=== PATIENT | male | born 1995 | race African-American/Black ===

== ENCOUNTER 2016-11-24 22:51 | Inpatient (IN) | payer MEDICAID, OTHER ==
[~2016-11-24] VITALS: Ht 170.2 cm; Wt 65.8 kg
[2016-11-24 22:54] VITALS: BP 110/69
--- NOTE | 2016-11-24 23:03 | NUR ---
TO ER BED 8
--- NOTE | 2016-11-24 23:05 | NUR ---
21/M C/O GRADUAL ONSET DIFFICULTY BREATHING AND CHEST PAIN X 1 HOUR AGO, NONRADIATING. PT ALSO REPORTS NAUSEA AND VOMITING WITH BLOODY EMESIS X2. PT REPORTS GRADUALLY WORSENING LOWER ABDOMINAL PAIN. PT REPORTS HE HAS BEEN SEEN AT [place] SEVERAL TIMES THIS MONTH. PMH: CHF RX: LASIX, LISINOPRIL, COREG
--- NOTE | 2016-11-24 23:07 | NUR ---
Patient being evaluated by DR. PINEDA at bedside.
[2016-11-24] MEDS ORDERED: PANTOPRAZOLE 40 MG INJ VIAL IVP ONE (23:20)
[2016-11-24 23:37] LABS: HEMATOCRIT 41.8 % (36-52); HEMOGLOBIN 13.5 g/dL (12.0-18.0); MEAN CORPUSCULAR HEMOGLOBIN 27 pg (27-31); MEAN CORPUSCULAR HGB CONC 32 g/dL (33-37); MEAN CORPUSCULAR VOLUME 82 fL (80-94); PLATELET COUNT (AUTO) 226 K/uL (140-450); RED BLOOD CELL COUNT(AUTO) 5.07 MIL/uL (4.20-6.10); RED CELL DISTRIBUTION WIDTH 13.1 % (11.6-13.7); WHITE BLOOD COUNT (AUTO) 7.6 K/uL (4.8-10.8)
[2016-11-24 23:48] LABS: ALBUMIN 3.3 g/dL (3.4-5.0); CREATININE 1.6 mg/dL (0.7-1.3); TOTAL BILIRUBIN 1.4 mg/dL (0.0-1.0)
[2016-11-24 23:57] LABS: LYMPHOCYTES % (MANUAL) 43 % (20-46); MONOCYTES % (MANUAL) 3 % (5-12)
[2016-11-25] VITALS (7 sets, daily range): BP systolic 86–105; BP diastolic 52–73
[2016-11-25] MEDS ORDERED: FUROSEMIDE 40 MG/4 ML VIAL IVP ONE (00:25)
[2016-11-25] MEDS ORDERED: MORPHINE SULFATE 2 MG/ML SYR IVP PRN (00:35)
[2016-11-25] MEDS ORDERED: ACETAMINOPHEN 325 MG TAB PO PRN (00:35)
[2016-11-25] MEDS ORDERED: LORazepam 2 MG/ML VIAL IVP PRN (00:35)
[2016-11-25] MEDS ORDERED: HYDROcodone/APAP 5/325 MG 1 TAB TAB PO PRN (00:35)
--- NOTE | 2016-11-25 00:35 | NUR ---
BP: 89/61, HR 100, SATS 99% ON RA. NO ACUTE DISTRESS NOTED AT THIS TIME. ER MD MADE AWARE OF PT'S STATUS. ORDER RECEIVED TO HOLD LASIX IVP.
[2016-11-25] MEDS ORDERED: CARV3.12 PO (01:11)
[2016-11-25] MEDS ORDERED: ASPI-1677 PO (01:11)
[2016-11-25] MEDS ORDERED: LISI2.5T12 PO (01:11)
[2016-11-25] MEDS ORDERED: FURO-570 PO (01:11)
[2016-11-25] MEDS ORDERED: DIGO0.121 PO (01:11)
--- NOTE | 2016-11-25 01:15 | NUR ---
Admitted from ER TO TELEMETRY UNIT , with chief complaint of SOB, VOMITING, BODY PAINS , 21 y/o ,Male, Cooperative, AWAKE, A/OX4, RESPIRATION EVEN AND UNLABORED, 02 SAT, 100% ON ROOM AIR. IV SALINE LOCK AT THE RIGHT AC G22, PATENT AND INTACT. HEAD TO TOE ASSESSMENT DONE WITH CHARGE NURSE JENNYFER, SKIN INTACT. DENIES PAIN 0/10 AT THIS TIME.oriented to call light, bed, phone,television, bathroom, smoking policy,visiting hours, procedures, ID bracelet on. Belongings list checked.
--- NOTE | 2016-11-25 01:20 | NUR ---
Patient will be admitted to care of DR BEAN. Admited to TELE. Will go to room 119A. Belongings list completed. Report to ADRY DICKINSON. VSS, PT STABLE, TRANSPORTED VIA GURNEY WITH CARE COORDINATION MANAGER. IV INTACT AND PATENT
--- NOTE | 2016-11-25 01:30 | NUR ---
REFUSED TO EAT SANDWICH WHEN OFFERED.
--- NOTE | 2016-11-25 02:00 | NUR ---
Patient's Plan of Care was discussed and reviewed with VECTOR CONTROL SPECIALIST: ADRY CARTAGENA
--- NOTE | 2016-11-25 02:30 | NUR ---
SLEEPING COMFORTABLY IN BED.
--- NOTE | 2016-11-25 07:15 | NUR ---
PATIENT RESTING IN BED, RT STATED PATIENT BECAME TACHYPNEIC, 02 AT 2 LITERS WAS PUT ON. STILL SLEEPING IN BED, NO RESPIRATORY DISTRESS. ENDORSED TO ALOK SAMS FOR CONTINUITY OF CARE. Addendum: 11/25/16 at 0742 by Gi Gaines LVN CORRECTION: ENDORSED PATIENT TO ALOK ROSARIO.
--- NOTE | 2016-11-25 07:16 | NUR ---
RECEIVED PT FROM ADRY SCHERER AT BEDSIDE. PT IS SLEEPING. PT HAS IV ON R AC 22 G SL INTACT. PT IS ON NC 2L, RR 36, NO DISTRESS NOTED. PT HAS NO COMPLAINTS AT THIS TIME. CALL LIGHT WITHIN REACH. WILL CONTINUE TO MONITOR.
[2016-11-25 07:50] LABS: HEMATOCRIT 39.7 % (36-52); HEMOGLOBIN 13.1 g/dL (12.0-18.0); MEAN CORPUSCULAR HEMOGLOBIN 27 pg (27-31); MEAN CORPUSCULAR HGB CONC 33 g/dL (33-37); MEAN CORPUSCULAR VOLUME 81 fL (80-94); PLATELET COUNT (AUTO) 219 K/uL (140-450); RED BLOOD CELL COUNT(AUTO) 4.88 MIL/uL (4.20-6.10); RED CELL DISTRIBUTION WIDTH 13.3 % (11.6-13.7); WHITE BLOOD COUNT (AUTO) 7.3 K/uL (4.8-10.8)
--- NOTE | 2016-11-25 07:52 | NUR ---
PATIENT HAS BEEN SCREENED AND CATEGORIZED MODERATE NUTRITION RISK. PATIENT WILL BE SEEN WITHIN 3-5 DAYS OF ADMISSION. 11/27/16-11/29/[address]
[2016-11-25 08:05] LABS: EOSINOPHILS % (MANUAL) 3 % (0-4); LYMPHOCYTES % (MANUAL) 33 % (20-46); MONOCYTES % (MANUAL) 9 % (5-12)
[2016-11-25 08:20] LABS: ANION GAP 12.1 (8-16); CARBON DIOXIDE 27.8 mmol/L (21-32); CREATININE 1.6 mg/dL (0.7-1.3); POTASSIUM 3.9 mmol/L (3.5-5.1)
--- NOTE | 2016-11-25 09:00 | NUR ---
PT IS RESTING COMFORTABLY IN BED. NO DISTRESS NOTED. CALL LIGHT WITHIN REACH. WILL CONTINUE TO MONITOR.
[2016-11-25] MEDS: FUROSEMIDE 40 MG/4 ML VIAL IVP SCH ×2 (09:13→21:00)
[2016-11-25 09:18] LABS: CREATINE KINASE MB 0.2 ng/mL (0-3.6)
[2016-11-25 09:37] LABS: MAGNESIUM 1.9 mg/dL (1.8-2.4); PHOSPHORUS 5.2 mg/dL (2.5-4.9)
[2016-11-25] MEDS: ONDANSETRON 4 MG/2 ML VIAL IVP PRN (10:50)
--- NOTE | 2016-11-25 11:50 | NUR ---
PT IS RESTING IN BED. NO ACUTE DISTRESS NOTED. CALL LIGHT WITHIN REACH. WILL CONTINUE TO MONITOR.
--- NOTE | 2016-11-25 13:30 | NUR ---
PT IS RESTING COMFORTABLY IN BED. NO DISTRESS NOTED. CALL LIGHT WITHIN REACH. WILL CONTINUE TO MONITOR.
--- NOTE | 2016-11-25 15:31 | NUR ---
PT IS LISTENING TO MUSIC IN BED. NO DISTRESS NOTED. CALL LIGHT WITHIN REACH. WILL CONTINUE TO MONITOR.
[2016-11-25 16:35] LABS: CREATINE KINASE MB 0.1 ng/mL (0-3.6)
--- NOTE | 2016-11-25 17:52 | NUR ---
PT IS RESTING IN BED PLAYING ON THE PHONE. PT IN STABLE CONDITION. CALL LIGHT WITHIN REACH. WILL CONTINUE TO MONITOR.
--- NOTE | 2016-11-25 19:20 | NUR ---
ENDORSED CARE OF PT TO CARY DICKINSON AT BEDSIDE. PT IN STABLE CONDITION.
--- NOTE | 2016-11-25 19:22 | NUR ---
PATIENT REPORT RECEIVED FROM MORNING NURSE. NO SIGNS AND SYMPTOMS OF DISTRESS NOTED. NO COMPLAINTS OF PAIN AT THIS TIME. IV SITE NOTED ON RIGHT AC, SALINE LOCKED. BED IN LOWEST POSITION, SIDE RAILS UP AND CALL LIGHT WITHIN REACH. WILL CONTINUE TO MONITOR.
[2016-11-25] MEDS: ATORVASTATIN 20 MG TAB PO SCH (20:40)
--- NOTE | 2016-11-25 22:00 | NUR ---
LASIX HELD DUE TO DECREASED BLOOD PRESSURE
--- NOTE | 2016-11-25 23:50 | NUR ---
CHECKED ON PATIENT. PATIENT IS ASLEEP. NO SIGNS AND SYMPTOMS OF DISTRESS NOTED. BED IN LOWEST POSITION, SIDE RAILS UP AND CALL LIGHT WITHIN REACH. WILL CONTINUE TO MONITOR.
[2016-11-26] VITALS (8 sets, daily range): BP systolic 87–104; BP diastolic 56–72
--- NOTE | 2016-11-26 03:45 | NUR ---
CHECKED ON PATIENT. PATIENT IS AWAKE, ALERT AND ORIENTED. PATIENT IS RELAXING IN BED WATCHING TV ON HIS PHONE. NO SIGNS AND SYMPTOMS OF DISTRESS NOTED. NO COMPLAINTS OF PAIN AT THIS TIME. BED IN LOWEST POSITION, SIDE RAILS UP AND CALL LIGHT WITHIN REACH. WILL CONTINUE TO MONITOR.
[2016-11-26 05:39] LABS: HEMATOCRIT 40.8 % (36-52); MEAN CORPUSCULAR HEMOGLOBIN 26 pg (27-31); MEAN CORPUSCULAR HGB CONC 32 g/dL (33-37); MEAN CORPUSCULAR VOLUME 82 fL (80-94); PLATELET COUNT (AUTO) 230 K/uL (140-450); RED BLOOD CELL COUNT(AUTO) 4.96 MIL/uL (4.20-6.10); RED CELL DISTRIBUTION WIDTH 12.8 % (11.6-13.7); WHITE BLOOD COUNT (AUTO) 6.7 K/uL (4.8-10.8)
[2016-11-26 06:30] LABS: ANION GAP 9.8 (8-16); CARBON DIOXIDE 29.8 mmol/L (21-32); CREATININE 1.6 mg/dL (0.7-1.3); POTASSIUM 3.6 mmol/L (3.5-5.1)
[2016-11-26 06:33] LABS: MAGNESIUM 1.9 mg/dL (1.8-2.4); PHOSPHORUS 4.7 mg/dL (2.5-4.9)
[2016-11-26 06:43] LABS: EOSINOPHILS % (MANUAL) 4 % (0-4); LYMPHOCYTES % (MANUAL) 40 % (20-46); MONOCYTES % (MANUAL) 10 % (5-12)
--- NOTE | 2016-11-26 07:03 | NUR ---
PT RESTING IN BED AT THIS TIME. PT IS ON ROOM AIR NO SOB AND NO RESPIRATORY DISTRESS NOTED AT THIS TIME. WILL CONTINUE TO MONITOR.
--- NOTE | 2016-11-26 07:07 | NUR ---
PATIENT REPORT GIVEN TO MORNING NURSE AT BEDSIDE. PATIENT IS IN STABLE CONDITION
--- NOTE | 2016-11-26 07:08 | NUR ---
PATIENT REPORT GIVEN TO MORNING NURSE AT BEDSIDE. PATIENT IS IN STABLE CONDITION Addendum: 11/26/16 at 0709 by Cash Guy RN DUPLICATE
--- NOTE | 2016-11-26 07:09 | NUR ---
RECEIVED BEDSIDE REPORT FROM NIGHT NURSE, PT SLEEPING, EASY TO AROUSE, STABLE,NO DISTRESS NOTED, ALERT AND ORIENTED, IV TO THE R AC 22 G SL, SKIN INTACT, CALL LIGHT WITHIN REACH, WILL CONTINUE TO MONITOR.
[2016-11-26] MEDS: CARVEDILOL 3.125 MG TAB PO SCH (09:15)
[2016-11-26] MEDS: FUROSEMIDE 40 MG/4 ML VIAL IVP SCH ×2 (09:15→20:48)
[2016-11-26] MEDS: LISINOPRIL 5 MG TAB PO SCH (09:16)
--- NOTE | 2016-11-26 09:20 | NUR ---
PT SITTING BY BEDSIDE, NO DISTRESS NOTED, PT STABLE, CALL LIGHT WITHIN REACH, WILL CONTINUE TO MONITOR
--- NOTE | 2016-11-26 11:35 | NUR ---
PT EATING LUNCH, NO DISTRESS NOTED, CALL LIGHT WITHIN REACH, WILL CONTINUE TO MONITOR.
[2016-11-26] MEDS: ONDANSETRON 4 MG/2 ML VIAL IVP PRN ×3 (12:28→22:28)
--- NOTE | 2016-11-26 12:28 | NUR ---
PT C/O NAUSEA. ADMINISTERED ZOFRAN AND PROVIDED VOMIT BAG. PT IN STABLE CONDITION. CALL LIGHT WITHIN REACH. WILL CONTINUE TO MONITOR.
--- NOTE | 2016-11-26 13:10 | NUR ---
PT REPORTED VOMITING, C/O NAUSEA, GAVE ICE CHIPS AND JUICE.
--- NOTE | 2016-11-26 14:16 | NUR ---
PT SLEEPING, EASY TO AROUSE, NO DISTRESS NOTED, NO LONGER C/O NAUSEA, CALL LIGHT WITHIN REACH, WILL CONTINUE TO MONITOR
--- NOTE | 2016-11-26 16:27 | NUR ---
PT IS SLEEPING COMFORTABLY IN BED. GRANDMOTHER AT BEDSIDE. CALL LIGHT WITHIN REACH. WILL CONTINUE TO MONITOR.
--- NOTE | 2016-11-26 18:08 | NUR ---
PT STATED HAVING NAUSEA, MEDICATION PER DR CAMILLE RAZA WAS GIVEN, PT RESTING, NO DISTRESS NOTED, CALL LIGHT WITHIN REACH, WILL CONTINUE TO MONITOR
--- NOTE | 2016-11-26 19:15 | NUR ---
ENDORSE PT TO NIGHT NURSE BY BEDSIDE, PT SITTING BY SIDE OF BED, NO DISTRESS NOTED, CALL LIGHT WITHIN REACH.
--- NOTE | 2016-11-26 19:16 | NUR ---
PATIENT REPORT RECEIVED FROM MORNING NURSE. PATIENT AWAKE, ALERT AND ORIENTED. PATIENT IS SITTING ON A CHAIR TALKING ON THE PHONE. NO SIGNS AND SYMPTOMS OF DISTRESS NOTED. IV SITE NOTED ON RIGHT FOREARM, ASYMPTOMATIC, INTACT AND PATENT. WILL CONTINUE TO MONITOR.
--- NOTE | 2016-11-26 19:30 | NUR ---
NOTIFIED DR MCNAMARA-COVERING FOR DR VALDES REGARDING THE CONSULT NEW ORDER CARRIED OUT AND PAGED DR PEREZ COVERING FOR DR GATICA TO NOTIFY THE CONSULT
[2016-11-26] MEDS: ATORVASTATIN 20 MG TAB PO SCH (20:48)
--- NOTE | 2016-11-26 22:00 | NUR ---
CHECKED ON PATIENT. PATIENT SAID THAT HE VOMITED. HE SAID THAT HE WAS STILL A LITTLE NAUSEOUS. WILL MEDICATE ORDERED.
[2016-11-26 22:39] LABS: ALBUMIN 3.1 g/dL (3.4-5.0); BILIRUBIN,DIRECT 0.3 mg/dL (0.0-0.3); TOTAL BILIRUBIN 1.4 mg/dL (0.0-1.0)
[2016-11-26 22:43] LABS: BARBITURATE, URINE NEG. ng/ml (NEG <=200); BENZODIAZEPINE, URINE NEG. ng/mL (NEG <=200); CANNABINOID, URINE POS. ng/mL (NEG <=50); COCAINE, URINE NEG. ng/mL (NEG <=300); OPIATE, URINE NEG. ng/mL (NEG <=2000); PHENCYCLIDINE SCREEN,URINE NEG. ng/mL (NEG <=25)
--- NOTE | 2016-11-26 23:15 | NUR ---
CHECKED ON PATIENT. PATIENT STATES THAT HE DOESN'T FEEL NAUSEOUS ANYMORE.
[2016-11-27] VITALS: BP 87/60
--- NOTE | 2016-11-27 | NUR ---
CHECKED ON PATIENT. PATIENT IS ASLEEP. NO SIGNS AND SYMPTOMS OF DISTRESS NOTED. BED IN LOWEST POSITION, SIDE RAILS UP AND CALL LIGHT WITHIN REACH.
[2016-11-27 04:00] VITALS: BP 87/52
[2016-11-27 06:46] LABS: HEMATOCRIT 41.7 % (36-52); HEMOGLOBIN 13.5 g/dL (12.0-18.0); MEAN CORPUSCULAR HEMOGLOBIN 27 pg (27-31); MEAN CORPUSCULAR HGB CONC 32 g/dL (33-37); MEAN CORPUSCULAR VOLUME 82 fL (80-94); PLATELET COUNT (AUTO) 215 K/uL (140-450); RED BLOOD CELL COUNT(AUTO) 5.08 MIL/uL (4.20-6.10); WHITE BLOOD COUNT (AUTO) 8.6 K/uL (4.8-10.8)
[2016-11-27 07:09] LABS: ANION GAP 9.5 (8-16); CARBON DIOXIDE 31.4 mmol/L (21-32); CREATININE 1.7 mg/dL (0.7-1.3); POTASSIUM 4.9 mmol/L (3.5-5.1)
[2016-11-27 07:16] LABS: MAGNESIUM 1.9 mg/dL (1.8-2.4); PHOSPHORUS 5.5 mg/dL (2.5-4.9)
--- NOTE | 2016-11-27 07:38 | NUR ---
PATIENT REPORT GIVEN AT BEDSIDE. PATIENT IN STABLE CONDITION.
--- NOTE | 2016-11-27 07:39 | NUR ---
RECEIVED REPORT FROM THE BRAKES INSPECTOR NURSE AT BEDSIDE FOR CONTINUITY OF CARE. PT IS AWAKE AND ORIENTED. INTRODUCED MYSELF AND UPDATED THE BOARD. NO SIGNS OF DISTRESS. NO SOB. DENIES PAIN. IV ON R AC 22G SL. NO FLUIDS AT THIS TIME. WAITING ON DR. GATICA/MINNIE AND SUPERVISOR MONEY ROOM. V/S WITHIN NORMAL RANGE. WILL CONTINUE TO MONITOR PT.
[2016-11-27 07:50] LABS: EOSINOPHILS % (MANUAL) 1 % (0-4); LYMPHOCYTES % (MANUAL) 33 % (20-46); MONOCYTES % (MANUAL) 5 % (5-12)
[2016-11-27 08:00] VITALS: BP 97/64
--- NOTE | 2016-11-27 08:00 | NUR ---
DR. BEAN WAS HERE. SAW PT. D/C TODAY OK, IF CLEARED BY CARDIOLOGY.
[2016-11-27] MEDS: FUROSEMIDE 40 MG/4 ML VIAL IVP SCH (08:56)
[2016-11-27] MEDS: CARVEDILOL 3.125 MG TAB PO SCH (08:57)
[2016-11-27] MEDS: LISINOPRIL 5 MG TAB PO SCH (08:59)
--- NOTE | 2016-11-27 09:01 | NUR ---
PT'S BP IS 97/64 THIS MORNING. CALLED THE SHIPPING ORDER CLERK. ASKED ABOUT MORNING MEDS. MD STATED TO HOLD LASIX AND CARVEDILOL THIS MORNING AND GIVE ONLY LISINOPRIL. ADMINISTERED ORDERED. PT TOLERATED WELL. WILL CONTINUE TO MONITOR PT.
--- NOTE | 2016-11-27 11:00 | NUR ---
DC INSTRUCTIONS TO PT. PT VERBALIZED UNDERSTANDING. NO QUESTIONS FOR ME. IV REMOVED, CANNULA INTACT. NO BLEEDING NOTED. REMOVED ID BAND AND TELE MONITOR. PT TO GET DRESSED AND GATHER PERSONAL BELONGINGS. WILL LET ME KNOW WHEN RIDE GETS HERE.
--- NOTE | 2016-11-27 11:35 | NUR ---
ALTAGRACIA, PANEL BEATER WALKED PT OUT TO THE LOBBY WHERE PT'S RIDE IS WAITING FOR HIM. PT IN STABLE CONDITION.
== END 2016-11-27 11:35 | disposition home or self-care (01) | DRG 194 ==
LOC: MED 22:51 → MTU 11-25 00:34
PROVIDERS: ADMIT Preventive Medicine Preventive Medicine/Occupational Environmental Medicine; ATTEND Preventive Medicine Preventive Medicine/Occupational Environmental Medicine
DX: I50.9 Heart failure, unspecified (principal); J96.00 Acute respiratory failure, unspecified whether with hypoxia or hypercapnia; N17.9 Acute kidney failure, unspecified; K92.0 Hematemesis; E44.0 Moderate protein-calorie malnutrition; I42.0 Dilated cardiomyopathy; I27.20 Pulmonary hypertension, unspecified; N18.9 Chronic kidney disease, unspecified; Z68.22 Body mass index [BMI] 22.0-22.9, adult; R73.9 Hyperglycemia, unspecified; R74.0 Nonspecific elevation of levels of transaminase and lactic acid dehydrogenase [LDH]; F12.10 Cannabis abuse, uncomplicated; I25.10 Atherosclerotic heart disease of native coronary artery without angina pectoris; Z87.891 Personal history of nicotine dependence; Z79.899 Other long term (current) drug therapy; Z79.82 Long term (current) use of aspirin
CPT/HCPCS: 36415; 71010; 76700; 80048; 80053; 80076; 80305; 82550; 82553; 83690; 83735; 83880; 84100; 84484; 85025; 85610; 85730; 86308; 87081; 93005; 96374; 99285; C9113; G0480; J1940; J2060; J2270; J2405; Q0092

== ENCOUNTER 2016-11-30 22:09 | Emergency (ER) | payer MEDICAID ==
[~2016-11-30] VITALS: Ht 170.2 cm; Wt 64.9 kg
[~2016-11-30 22:09] MED LIST: ASPI-1677 PO; CARV3.12 PO; DIGO0.121 PO; FURO-570 PO; LISI2.5T12 PO
[2016-11-30 22:29] VITALS: BP 101/55
--- NOTE | 2016-11-30 22:37 | NUR ---
TO ER BED 11
--- NOTE | 2016-11-30 22:45 | NUR ---
PATIENT IS A 21 Y/O MALE WHO PRESENTS TO THE ED C/O SOB. PT STATES, "I HAVE BEEN HAVING THIS WEIRD FEELING ALL DAY." PT REPORTS 8/10 ACHING PAIN ON THE ABD AND BILATERAL LEG PAIN THAT DOES NOT RADIATE. CMS INTACT. PT REPORTS SOB, LUNG SOUNDS CLEAR BILATERALLY. PT DREPORTS NAUSEA AND VOMITING X2 EPISODES, DENIES DIARRHEA. PT AAOX4, RR EVEN/UNLABORED. PT REPOSITIONED FOR COMFORT, BED IN LOWEST POSITION. ER MD DR. CROOKS NOTIFIED. WILL CONTINUE TO MONITOR.
[2016-11-30] MEDS ORDERED: DICYCLOMINE HCL LIQUID 20 MG, ALUMINUM HYD/MAG/SIMETHICONE 30 ML, LIDOCAINE VISCOUS 2% ... PO ONE ×3 (23:45)
[2016-11-30] MEDS ORDERED: ONDANSETRON 4 MG ODT PO ONE (23:45)
[2016-12-01 00:07] LABS: ANION GAP 12.4 (8-16); CARBON DIOXIDE 28.2 mmol/L (21-32); CREATININE 1.7 mg/dL (0.7-1.3); POTASSIUM 3.6 mmol/L (3.5-5.1)
[2016-12-01 00:13] LABS: ALBUMIN 3.3 g/dL (3.4-5.0); TOTAL BILIRUBIN 1.2 mg/dL (0.0-1.0)
[2016-12-01 02:55] VITALS: BP 94/70
--- NOTE | 2016-12-01 02:55 | NUR ---
Patient discharged with v/s stable. Written and verbal after care instructions given and explained. Patient alert, oriented and verbalized understanding of instructions. Ambulatory with steady gait. All questions addressed prior to discharge. ID band removed. Patient advised to follow up with PMD. Rx of Reglan and Lasix given. Patient educated on indication of medication including possible reaction and side effects. Opportunity to ask questions provided and answered.
== END 2016-12-01 02:55 | disposition home or self-care (01) ==
LOC: MED 22:09
DX: R10.13 Epigastric pain (principal); R06.02 Shortness of breath; R07.89 Other chest pain; R11.2 Nausea with vomiting, unspecified; I50.9 Heart failure, unspecified; Z79.899 Other long term (current) drug therapy; Z87.891 Personal history of nicotine dependence
CPT/HCPCS: 36415; 36600; 71010; 80053; 80162; 82803; 83690; 83880; 84484; 99285; Q0092; S0119; 93005